=== PATIENT | female | born 1950 | race African-American/Black ===

== ENCOUNTER 2020-07-01 07:07 | Inpatient (IN) ==
[~2020-07-01 07:07] MED LIST: ceFAZolin 1,000 MG in SYRINGE 1 EACH IV ONE
[2020-07-01] MEDS ORDERED: NITROGLYCERIN DRIP 50 MG/250 ML BOTTLE IV ONE ×2 (07:39→12:39)
[2020-07-01] MEDS ORDERED: PHENYLEPHRINE DRIP 20 MG/250 ML PREMIX IV ONE ×2 (07:39→12:38)
[2020-07-01] MEDS ORDERED: HEPARIN 5,000 UNIT/1 ML VIAL ONE ×2 (07:44→10:27)
[2020-07-01] MEDS ORDERED: FAMOTIDINE 20 MG TABLET ONE (08:05)
[2020-07-01] MEDS ORDERED: FAMOTIDINE 20 MG TABLET PO ONE (08:07)
[2020-07-01] MEDS: LACTATED RINGERS 1,000 ML IV SCH ×3 (09:48→21:30)
[2020-07-01] MEDS ORDERED: LIDOCAINE 1% 20 ML VIAL ONE (11:58)
[2020-07-01] MEDS ORDERED: BUPIVACAINE MPF 0.25% 30 ML VIAL ONE (11:58)
[2020-07-01] MEDS ORDERED: MAGNESIUM CHLORIDE 64 MG TABLET PO PRN (12:24)
[2020-07-01] MEDS ORDERED: ERGOCALCIFEROL 50,000 UNIT CAPSULE PO SCH (12:30)
[2020-07-01] MEDS ORDERED: LIDOCAINE 2% 5 ML VIAL ONE (12:38)
[2020-07-01] MEDS ORDERED: propofoL 200 MG/20 ML VIAL IV ONE (12:38)
[2020-07-01] MEDS ORDERED: ETOMIDATE 40 MG/20 ML VIAL IV ONE (12:39)
[2020-07-01] MEDS ORDERED: DEXAMETHASONE 4 MG/1 ML VIAL ONE (12:39)
[2020-07-01] MEDS ORDERED: fentaNYL 100 MCG/2 ML VIAL ONE (12:39)
[2020-07-01] MEDS ORDERED: GLYCOPYRROLATE 0.4 MG/2 ML VIAL ONE (12:39)
[2020-07-01] MEDS ORDERED: HEPARIN 10,000 UNIT/10 ML VIAL ONE (12:39)
[2020-07-01] MEDS ORDERED: SEVOFLURANE 1 UNIT/15 MINUTE INH ONE (12:39)
[2020-07-01] MEDS ORDERED: ACETAMINOPHEN 1,000 MG/100 ML VIAL IV ONE (12:40)
[2020-07-01] MEDS ORDERED: NEOSTIGMINE 10 MG/10 ML VIAL ONE (12:40)
[2020-07-01] MEDS ORDERED: ROCURONIUM 100 MG/10 ML VIAL IV ONE (12:40)
[2020-07-01] MEDS ORDERED: LACTATED RINGERS 1,000 ML IV ONE (12:40)
[2020-07-01 13:56] LABS: Hematocrit 29.8 VOL% (35.7-47.0); Hemoglobin 9.3 GM/DL (12.0-16.0)
[2020-07-01 14:12] LABS: Calcium 8.6 MG/DL (8.5-10.1); Osmolality,Calculated 288.8 MOS/KG (273-304)
[2020-07-01] MEDS: HYDROmorphone 2 MG/1 ML VIAL IV PRN ×2 (15:16→21:29)
[2020-07-01] MEDS: ONDANSETRON 4 MG/2 ML VIAL IV PRN ×2 (15:45→19:59)
[2020-07-01] MEDS: carvediloL 25 MG TABLET PO SCH (20:02)
[2020-07-01] MEDS: DOCUSATE SODIUM 100 MG CAPSULE PO SCH (20:02)
[2020-07-01] MEDS: FERROUS SULFATE 325 MG TABLET PO SCH (20:03)
[2020-07-01] MEDS: INSULIN GLARGINE 100 UNIT/ML SUBCUT SCH (20:31)
[2020-07-02] MEDS: ONDANSETRON 4 MG/2 ML VIAL IV PRN ×2 (01:06→12:44)
[2020-07-02] MEDS: HYDROmorphone 2 MG/1 ML VIAL IV PRN ×2 (02:25→11:48)
[2020-07-02] MEDS: LACTATED RINGERS 1,000 ML IV SCH ×2 (04:56→10:03)
[2020-07-02 05:28] LABS: Hematocrit 28.7 VOL% (35.7-47.0); Hemoglobin 8.8 GM/DL (12.0-16.0)
[2020-07-02 05:47] LABS: Calcium 8.4 MG/DL (8.5-10.1); Osmolality,Calculated 290.8 MOS/KG (273-304)
[2020-07-02] MEDS: ENOXAPARIN 40 MG/0.4 ML SYRINGE SUBCUT SCH (08:22)
[2020-07-02] MEDS: VERAPAMIL SR 240 MG TABLET PO SCH (08:23)
[2020-07-02] MEDS: ASPIRIN EC 81 MG TABLET PO SCH (08:24)
[2020-07-02] MEDS: EZETIMIBE 10 MG TABLET PO SCH (08:25)
[2020-07-02] MEDS: carvediloL 25 MG TABLET PO SCH ×2 (08:25→21:08)
[2020-07-02] MEDS: PANTOPRAZOLE 40 MG TABLET PO SCH (08:25)
[2020-07-02] MEDS: ROSUVASTATIN 20 MG TABLET PO SCH (08:25)
[2020-07-02] MEDS: FERROUS SULFATE 325 MG TABLET PO SCH ×2 (08:25→21:06)
[2020-07-02] MEDS: LEVOTHYROXINE 50 MCG TABLET PO SCH (08:25)
[2020-07-02] MEDS: DOCUSATE SODIUM 100 MG CAPSULE PO SCH ×2 (08:25→21:06)
[2020-07-02] MEDS: LIRAGLUTIDE 1.2 MG SUBCUT SCH (10:02)
[2020-07-02] MEDS: INSULIN GLARGINE 100 UNIT/ML SUBCUT SCH (21:06)
[2020-07-03 06:22] LABS: Hematocrit 22.1 VOL% (35.7-47.0); Hemoglobin 6.9 GM/DL (12.0-16.0)
[2020-07-03 06:28] LABS: Calcium 8.5 MG/DL (8.5-10.1); Osmolality,Calculated 294.7 MOS/KG (273-304)
[2020-07-03] MEDS: LIRAGLUTIDE 1.2 MG SUBCUT SCH (08:24)
[2020-07-03] MEDS: LEVOTHYROXINE 50 MCG TABLET PO SCH (08:25)
[2020-07-03] MEDS: carvediloL 25 MG TABLET PO SCH (08:25)
[2020-07-03] MEDS: ROSUVASTATIN 20 MG TABLET PO SCH (08:25)
[2020-07-03] MEDS: ENOXAPARIN 40 MG/0.4 ML SYRINGE SUBCUT SCH (08:25)
[2020-07-03] MEDS: VERAPAMIL SR 240 MG TABLET PO SCH (08:25)
[2020-07-03] MEDS: EZETIMIBE 10 MG TABLET PO SCH (08:25)
[2020-07-03] MEDS: ASPIRIN EC 81 MG TABLET PO SCH (08:25)
[2020-07-03] MEDS: FERROUS SULFATE 325 MG TABLET PO SCH (08:25)
[2020-07-03] MEDS: PANTOPRAZOLE 40 MG TABLET PO SCH (08:25)
[2020-07-03] MEDS: DOCUSATE SODIUM 100 MG CAPSULE PO SCH ×2 (08:25→21:44)
[2020-07-03] MEDS ORDERED: MAGNESIUM SULF RIDER 4 GM in PREMIX 1 EACH IV PRN (10:28)
[2020-07-03] MEDS ORDERED: NALOXONE 0.4 MG/ML VIAL IV ONE (14:10)
[2020-07-03] MEDS ORDERED: SUCCINYLCHOLINE 200 MG/10 ML VIAL ONE (14:12)
[2020-07-03] MEDS ORDERED: ETOMIDATE 20 MG/10 ML VIAL IV ONE ×2 (14:12→14:14)
[2020-07-03] MEDS ORDERED: SUCCINYLCHOLINE 200 MG/10 ML VIAL IV ONE (14:14)
[2020-07-03] MEDS ORDERED: SODIUM CHLORIDE 0.9% 1,000 ML IV PRN ×2 (14:16→21:09)
[2020-07-03 14:22] LABS: Basophils % 0.2 % (0.0-0.8); Eosinophils # 0.1 10*3/uL (0.0-0.87); Eosinophils % 0.5 % (0.00-10.9); Hematocrit 19.1 VOL% (35.7-47.0); Immature Granulocytes % 0.9 %; Lymphocytes # 1.8 10*3/uL (1.4-4.0); Lymphocytes % 16.8 % (21.3-54.2); Mean Corpuscular HGB Conc 30.9 GM/DL (32-36); Mean Corpuscular Volume 96.5 FL (87-102); Mean Platelet Volume 10.6 FL (9.6-12.0); Monocytes % 10.3 % (1.7-12.7); NRBC # 0.03 10*3/uL; Neutrophils % 71.3 % (38.7-73.9); Platelet Count 97 T/CUMM (130-400); Red Blood Count 1.98 MC/CUMM (3.8-5.5); Red Cell Distribution Width 13.6 % (9.3-17.3)
[2020-07-03] MEDS ORDERED: LACTATED RINGERS 1,000 ML IV ONE (14:24)
[2020-07-03 14:26] LABS: Hemoglobin 5.9 GM/DL (12.0-16.0)
[2020-07-03] MEDS: NOREPINEPHRINE 8 MG in SODIUM CHLORIDE 0.9% 242 ML IV PRN ×2 (14:30→18:49)
[2020-07-03] MEDS ORDERED: ATROPINE 1 MG/10 ML SYRINGE ONE (14:54)
[2020-07-03] MEDS ORDERED: EPINEPHrine 1 MG/ML VIAL ONE (14:56)
[2020-07-03 15:01] LABS: Calcium 7.8 MG/DL (8.5-10.1); Osmolality,Calculated 294.2 MOS/KG (273-304)
[2020-07-03 15:19] LABS: ABG Base Excess -3.8 MMOL/L (-2.5-2.5); ABG HCO3 19.1 MMOL/L (20-26); ABG Oxygen Saturation 99.1 % (95-100); ABG PH 7.501 (7.35-7.45); ABG PO2 493.7 MM HG (80-95); ABG TCO2 19.9 MMOL/L (23-27)
[2020-07-03] MEDS ORDERED: LIDOCAINE 1% 20 ML VIAL ONE (16:06)
[2020-07-03] MEDS ORDERED: PHENYLEPHRINE 50 MG/5 ML VIAL ONE (17:00)
[2020-07-03 17:31] LABS: ABG Base Excess -4.4 MMOL/L (-2.5-2.5); ABG HCO3 20.8 MMOL/L (20-26); ABG Oxygen Saturation 99.9 % (95-100); ABG PCO2 28.9 MM HG (35-48); ABG PH 7.427 (7.35-7.45); ABG TCO2 17.5 MMOL/L (23-27)
[2020-07-03 17:36] LABS: Apearance,Urine CLEAR (Clear); Bilirubin,Urine Negative (Negative); Blood, Urine Negative (Negative); Glucose,Urine (UA) 50 mg/dL (Negative); Hyaline Casts,Urine 3 /LPF (0-3); Ketones,Urine Negative (Negative); Nitrite,Urine Negative (Negative); Protein,Urine Negative; RBC,Urine 1 /HPF (0-4); Urine Color Yellow (Yellow); Urine Specific Gravity 1.013 (1.001-1.035); Urine Urobilinogen < 2.0 EU/DL (0.2-1.0); WBC,Urine 1 /HPF (0-6)
[2020-07-03] MEDS ORDERED: PHENYLEPHRINE DRIP 40 MG/250 ML PREMIX IV PRN (18:50)
[2020-07-03] MEDS: LACTATED RINGERS 1,000 ML IV SCH (19:23)
[2020-07-03] MEDS: MAGNESIUM SULF RIDER 2 GM in PREMIX 1 EACH IV PRN (19:58)
[2020-07-03 20:57] LABS: Hematocrit 27.4 VOL% (35.7-47.0)
[2020-07-03 20:59] LABS: Hemoglobin 9.2 GM/DL (12.0-16.0)
[2020-07-03] MEDS ORDERED: MULTIVITAMIN (INTRINSIC) CAPSULE PO SCH (21:00)
[2020-07-03] MEDS ORDERED: RIVAROXABAN 2.5 MG TABLET PO SCH (21:00)
[2020-07-03 21:07] LABS: CKMB % 3.2 %
[2020-07-03 21:09] LABS: Troponin I 33.9 NG/ML (0.00-0.045)
[2020-07-04 04:52] LABS: ABG Base Excess 5.6 MMOL/L (-2.5-2.5); ABG HCO3 29.5 MMOL/L (20-26); ABG PCO2 21.9 MM HG (35-48); ABG TCO2 22.5 MMOL/L (23-27)
[2020-07-04 04:54] LABS: ABG PH 7.669 (7.35-7.45)
[2020-07-04 05:45] LABS: Basophils % 0.2 % (0.0-0.8); Hematocrit 33.4 VOL% (35.7-47.0); Immature Granulocytes % 1.2 %; Immature Granulocytes Absolute 0.15 #; Lymphocytes # 1.3 10*3/uL (1.4-4.0); Lymphocytes % 10.6 % (21.3-54.2); Mean Corpuscular HGB Conc 34.1 GM/DL (32-36); Mean Corpuscular Volume 87.2 FL (87-102); Mean Platelet Volume 9.6 FL (9.6-12.0); Monocytes % 4.6 % (1.7-12.7); NRBC # 0.13 10*3/uL; Neutrophils % 83.4 % (38.7-73.9); Red Cell Distribution Width 13.3 % (9.3-17.3); White Blood Count 12.7 T/CUMM (4-12)
[2020-07-04 05:48] LABS: Hemoglobin 11.4 GM/DL (12.0-16.0); Platelet Count 143 T/CUMM (130-400); Red Blood Count 3.83 MC/CUMM (3.8-5.5)
[2020-07-04 06:01] LABS: Calcium 9.3 MG/DL (8.5-10.1); Osmolality,Calculated 300.3 MOS/KG (273-304)
[2020-07-04 06:18] LABS: ABG Base Excess 4.2 MMOL/L (-2.5-2.5); ABG HCO3 24.7 MMOL/L (20-26); ABG Oxygen Saturation 98.6 % (95-100); ABG PCO2 24.9 MM HG (35-48); ABG PO2 251.6 MM HG (80-95); ABG TCO2 25.4 MMOL/L (23-27)
[2020-07-04 06:20] LABS: ABG PH 7.614 (7.35-7.45)
[2020-07-04] MEDS ORDERED: hydroCHLOROthiazide 25 MG TABLET PO SCH (09:00)
[2020-07-04] MEDS: LACTATED RINGERS 1,000 ML IV SCH ×3 (09:28→18:41)
[2020-07-04 10:31] LABS: CKMB % 0.7 %
[2020-07-04 10:34] LABS: Troponin I 21.8 NG/ML (0.00-0.045)
[2020-07-04] MEDS: AMPICILLIN/SULBACTAM 1,500 MG in SODIUM CHLORIDE 0.9% 100 ML IV SCH ×2 (11:50→17:34)
[2020-07-04] MEDS: HYDROmorphone 2 MG/1 ML VIAL IV PRN (12:06)
[2020-07-04] MEDS ORDERED: ATROPINE 1 MG/10 ML SYRINGE ONE (13:39)
[2020-07-04] MEDS ORDERED: NOREPINEPHRINE 4 MG/4 ML VIAL IV ONE (13:39)
[2020-07-04] MEDS ORDERED: EPINEPHrine 1 MG/10 ML SYRINGE ONE (13:39)
[2020-07-04] MEDS: amLODIPine 5 MG TABLET PO SCH (17:19)
[2020-07-04] MEDS: carvediloL 3.125 MG TABLET PO SCH (20:18)
[2020-07-05] MEDS: AMPICILLIN/SULBACTAM 1,500 MG in SODIUM CHLORIDE 0.9% 100 ML IV SCH ×3 (03:20→17:59)
[2020-07-05] MEDS: LACTATED RINGERS 1,000 ML IV SCH ×3 (03:41→14:03)
[2020-07-05 05:25] LABS: ABG Base Excess 7.9 MMOL/L (-2.5-2.5); ABG HCO3 31.7 MMOL/L (20-26); ABG Oxygen Saturation 99.7 % (95-100); ABG TCO2 25.5 MMOL/L (23-27)
[2020-07-05 05:29] LABS: Basophils % 0.2 % (0.0-0.8); Eosinophils # 0.1 10*3/uL (0.0-0.87); Eosinophils % 0.5 % (0.00-10.9); Hematocrit 34.8 VOL% (35.7-47.0); Hemoglobin 11.8 GM/DL (12.0-16.0); Immature Granulocytes Absolute 0.12 #; Lymphocytes # 0.9 10*3/uL (1.4-4.0); Lymphocytes % 7.7 % (21.3-54.2); Mean Corpuscular HGB Conc 33.9 GM/DL (32-36); Mean Corpuscular Volume 88.5 FL (87-102); Mean Platelet Volume 9.6 FL (9.6-12.0); Monocytes % 4.9 % (1.7-12.7); NRBC # 0.12 10*3/uL; Neutrophils % 85.7 % (38.7-73.9); Platelet Count 175 T/CUMM (130-400); Red Blood Count 3.93 MC/CUMM (3.8-5.5); Red Cell Distribution Width 13.2 % (9.3-17.3); White Blood Count 12.2 T/CUMM (4-12)
[2020-07-05 05:30] LABS: ABG PH 7.621 (7.35-7.45)
[2020-07-05 05:50] LABS: Calcium 9.2 MG/DL (8.5-10.1); Osmolality,Calculated 290.4 MOS/KG (273-304)
[2020-07-05] MEDS: carvediloL 3.125 MG TABLET PO SCH (08:31)
[2020-07-05] MEDS: amLODIPine 5 MG TABLET PO SCH (08:31)
[2020-07-05] MEDS ORDERED: POTASSIUM CHLORIDE RIDER 10 MEQ in PREMIX 1 EACH IV PRN (11:14)
[2020-07-05] MEDS ORDERED: GLUCAGON 1 MG VIAL IM PRN (11:16)
[2020-07-05] MEDS ORDERED: DEXTROSE 50% 25 GM/50 ML VIAL IV PRN (11:16)
[2020-07-05 11:55] LABS: ABG Base Excess 6.6 MMOL/L (-2.5-2.5); ABG HCO3 30.4 MMOL/L (20-26); ABG PCO2 37.6 MM HG (35-48); ABG TCO2 26.6 MMOL/L (23-27)
[2020-07-05] MEDS: POTASSIUM CHLORIDE RIDER 20 MEQ in PREMIX 1 EACH IV PRN ×2 (12:00→14:00)
[2020-07-05] MEDS: MAGNESIUM SULF RIDER 2 GM in PREMIX 1 EACH IV PRN ×2 (12:00→14:00)
[2020-07-05] MEDS: INSULIN REGULAR 100 UNIT/ML SUBCUT SCH ×2 (12:27→17:59)
[2020-07-05] MEDS: hydrALAZINE 20 MG/1 ML VIAL IV PRN (14:45)
[2020-07-05 14:58] LABS: ABG Base Excess 6.3 MMOL/L (-2.5-2.5); ABG HCO3 30.1 MMOL/L (20-26); ABG Oxygen Saturation 97.9 % (95-100); ABG PCO2 39.4 MM HG (35-48); ABG TCO2 26.5 MMOL/L (23-27)
[2020-07-05] MEDS: carvediloL 6.25 MG TABLET PO SCH (20:46)
[2020-07-06] MEDS: INSULIN REGULAR 100 UNIT/ML SUBCUT SCH ×5 (00:12→23:41)
[2020-07-06] MEDS: LACTATED RINGERS 1,000 ML IV SCH ×3 (00:13→21:26)
[2020-07-06] MEDS: AMPICILLIN/SULBACTAM 1,500 MG in SODIUM CHLORIDE 0.9% 100 ML IV SCH ×3 (02:18→18:05)
[2020-07-06 05:28] LABS: ABG HCO3 29.9 MMOL/L (20-26); ABG Oxygen Saturation 99.1 % (95-100); ABG PCO2 41.2 MM HG (35-48); ABG PH 7.473 (7.35-7.45); ABG TCO2 26.5 MMOL/L (23-27)
[2020-07-06 05:31] LABS: Basophils % 0.2 % (0.0-0.8); Eosinophils # 0.3 10*3/uL (0.0-0.87); Eosinophils % 2.3 % (0.00-10.9); Hematocrit 36.9 VOL% (35.7-47.0); Immature Granulocytes % 0.7 %; Lymphocytes # 1.1 10*3/uL (1.4-4.0); Lymphocytes % 7.4 % (21.3-54.2); Mean Corpuscular HGB Conc 32.5 GM/DL (32-36); Mean Corpuscular Volume 90.7 FL (87-102); Mean Platelet Volume 9.3 FL (9.6-12.0); Monocytes % 6.7 % (1.7-12.7); NRBC # 0.11 10*3/uL; Neutrophils % 82.7 % (38.7-73.9); Platelet Count 185 T/CUMM (130-400); Red Blood Count 4.07 MC/CUMM (3.8-5.5); Red Cell Distribution Width 13.3 % (9.3-17.3); White Blood Count 14.3 T/CUMM (4-12)
[2020-07-06] MEDS: hydrALAZINE 20 MG/1 ML VIAL IV PRN (05:36)
[2020-07-06 06:19] LABS: Albumin 2.2 G/DL (3.4-5.0); Bilirubin,Total 1.9 MG/DL (0.2-1.0); Calcium 9.2 MG/DL (8.5-10.1); Osmolality,Calculated 282.5 MOS/KG (273-304); Total Protein 6.1 G/DL (6.4-8.3)
[2020-07-06] MEDS ORDERED: MAGNESIUM SULF RIDER 2 GM in PREMIX 1 EACH IV ONE (07:43)
[2020-07-06] MEDS: amLODIPine 10 MG TABLET PO SCH (08:32)
[2020-07-06] MEDS: carvediloL 6.25 MG TABLET PO SCH ×2 (08:32→21:01)
[2020-07-06] MEDS: POTASSIUM CHLORIDE RIDER 20 MEQ in PREMIX 1 EACH IV PRN (08:35)
[2020-07-07] MEDS: AMPICILLIN/SULBACTAM 1,500 MG in SODIUM CHLORIDE 0.9% 100 ML IV SCH ×2 (02:49→12:55)
[2020-07-07] MEDS: INSULIN REGULAR 100 UNIT/ML SUBCUT SCH ×4 (06:21→23:53)
[2020-07-07] MEDS ORDERED: MAGNESIUM SULF RIDER 2 GM in PREMIX 1 EACH IV ONE (07:48)
[2020-07-07] MEDS: LACTATED RINGERS 1,000 ML IV SCH (07:59)
[2020-07-07 08:00] LABS: Basophils % 0.2 % (0.0-0.8); Eosinophils # 0.3 10*3/uL (0.0-0.87); Eosinophils % 2.8 % (0.00-10.9); Hemoglobin 11.7 GM/DL (12.0-16.0); Immature Granulocytes % 0.8 %; Lymphocytes # 1.1 10*3/uL (1.4-4.0); Lymphocytes % 9.2 % (21.3-54.2); Mean Corpuscular HGB Conc 31.6 GM/DL (32-36); Mean Platelet Volume 9.4 FL (9.6-12.0); Monocytes % 9.7 % (1.7-12.7); NRBC # 0.08 10*3/uL; Neutrophils % 77.3 % (38.7-73.9); Platelet Count 194 T/CUMM (130-400); Red Blood Count 3.98 MC/CUMM (3.8-5.5); Red Cell Distribution Width 13.5 % (9.3-17.3); White Blood Count 12.2 T/CUMM (4-12)
[2020-07-07] MEDS: carvediloL 6.25 MG TABLET PO SCH ×2 (08:00→21:44)
[2020-07-07] MEDS: amLODIPine 10 MG TABLET PO SCH (08:01)
[2020-07-07 08:21] LABS: Osmolality,Calculated 287.3 MOS/KG (273-304)
[2020-07-07] MEDS: ASPIRIN EC 81 MG TABLET PO SCH (12:55)
[2020-07-07] MEDS: MAGNESIUM SULF RIDER 2 GM in PREMIX 1 EACH IV PRN (12:56)
[2020-07-07] MEDS: AMOXICILLIN/CLAV 500 MG TABLET PO SCH (21:44)
[2020-07-08] MEDS: HYDROmorphone 2 MG/1 ML VIAL IV PRN ×2 (00:59→18:15)
[2020-07-08] MEDS: INSULIN REGULAR 100 UNIT/ML SUBCUT SCH ×3 (05:53→17:50)
[2020-07-08] MEDS: carvediloL 6.25 MG TABLET PO SCH ×2 (09:35→21:29)
[2020-07-08] MEDS: ASPIRIN EC 81 MG TABLET PO SCH (09:35)
[2020-07-08] MEDS: amLODIPine 10 MG TABLET PO SCH (09:35)
[2020-07-08] MEDS: AMOXICILLIN/CLAV 500 MG TABLET PO SCH ×2 (09:35→21:29)
[2020-07-08] MEDS: MAGNESIUM GLUCONATE 500 MG TABLET PO SCH ×2 (10:15→21:29)
[2020-07-08] MEDS ORDERED: MAGNESIUM HYDROXIDE SUSP 30 ML UDCUP PO PRN (10:38)
[2020-07-08] MEDS ORDERED: BISACODYL 10 MG SUPP RECTAL PRN (10:38)
[2020-07-09] MEDS: INSULIN REGULAR 100 UNIT/ML SUBCUT SCH ×4 (00:28→18:48)
[2020-07-09 06:13] LABS: Basophils # 0.1 10*3/uL (0.0-0.2); Basophils % 0.4 % (0.0-0.8); Eosinophils # 0.3 10*3/uL (0.0-0.87); Eosinophils % 2.5 % (0.00-10.9); Hematocrit 32.3 VOL% (35.7-47.0); Hemoglobin 10.5 GM/DL (12.0-16.0); Immature Granulocytes % 1.2 %; Immature Granulocytes Absolute 0.14 #; Lymphocytes # 1.5 10*3/uL (1.4-4.0); Lymphocytes % 12.2 % (21.3-54.2); Mean Corpuscular HGB Conc 32.5 GM/DL (32-36); Mean Platelet Volume 9.6 FL (9.6-12.0); Neutrophils % 69.7 % (38.7-73.9); Platelet Count 209 T/CUMM (130-400); Red Blood Count 3.51 MC/CUMM (3.8-5.5); Red Cell Distribution Width 13.1 % (9.3-17.3); White Blood Count 12.2 T/CUMM (4-12)
[2020-07-09 06:38] LABS: Calcium 8.3 MG/DL (8.5-10.1); Osmolality,Calculated 284.8 MOS/KG (273-304)
[2020-07-09] MEDS: amLODIPine 10 MG TABLET PO SCH (10:00)
[2020-07-09] MEDS: MAGNESIUM GLUCONATE 500 MG TABLET PO SCH ×2 (10:00→21:02)
[2020-07-09] MEDS: AMOXICILLIN/CLAV 500 MG TABLET PO SCH ×2 (10:01→21:02)
[2020-07-09] MEDS: carvediloL 6.25 MG TABLET PO SCH ×2 (10:01→21:08)
[2020-07-09] MEDS: ASPIRIN EC 81 MG TABLET PO SCH (10:01)
[2020-07-09] MEDS: ACETAMINOPHEN 325 MG TABLET PO PRN (21:08)
[2020-07-10] MEDS: INSULIN REGULAR 100 UNIT/ML SUBCUT SCH ×4 (00:53→17:25)
[2020-07-10] MEDS: ACETAMINOPHEN 325 MG TABLET PO PRN (09:08)
[2020-07-10] MEDS: ASPIRIN EC 81 MG TABLET PO SCH (09:10)
[2020-07-10] MEDS: carvediloL 6.25 MG TABLET PO SCH (09:10)
[2020-07-10] MEDS: MAGNESIUM GLUCONATE 500 MG TABLET PO SCH (09:10)
[2020-07-10] MEDS: AMOXICILLIN/CLAV 500 MG TABLET PO SCH (09:16)
[2020-07-10] MEDS: amLODIPine 10 MG TABLET PO SCH (09:17)
[2020-07-10 11:41] LABS: Apearance,Urine CLEAR (Clear); Bacteria,Urine Occasional /HPF (Few); Bilirubin,Urine Negative (Negative); Blood, Urine Small mg/dL (Negative); Glucose,Urine (UA) >=500 mg/dL (Negative); Ketones,Urine Negative (Negative); Mucus,Urine Occasional /LPF (Occasional); Nitrite,Urine Negative (Negative); Protein,Urine Negative; RBC,Urine 4 /HPF (0-4); Urine Color Yellow (Yellow); Urine Specific Gravity 1.011 (1.001-1.035); Urine Urobilinogen < 2.0 EU/DL (0.2-1.0); WBC,Urine 1 /HPF (0-6)
[2020-07-10 20:11] VITALS: BP 144/59
[2020-07-10] MEDS ORDERED: INSULIN GLARGINE 100 UNIT/ML SUBCUT SCH (21:00)
== END 2020-07-10 17:46 | disposition swing bed (61) | DRG 252 ==
LOC: N.LAB 07:07 → N.SDSINP 07:07 → N.4E 13:17 → N.ICU 07-03 14:00 → EDSTATUS 07-03 17:00 → N.ICU 07-07 01:22 → N.TELES 07-07 19:27 → UNDODEPREF 07-24 10:52
PROVIDERS: ADMIT Surgery; ATTEND Surgery

== ENCOUNTER 2020-08-05 15:01 | Inpatient (IN) ==
[2020-08-06] MEDS ORDERED: ACETAMINOPHEN 325 MG TABLET PO PRN (16:25)
[2020-08-06] MEDS ORDERED: MAGNESIUM CHLORIDE 64 MG TABLET PO PRN (16:25)
[2020-08-06 16:53] LABS: Basophils # 0.1 10*3/uL (0.0-0.2); Basophils % 0.5 % (0.0-0.8); Eosinophils # 0.5 10*3/uL (0.0-0.87); Eosinophils % 3.5 % (0.00-10.9); Hemoglobin 8.5 GM/DL (12.0-16.0); Immature Granulocytes % 0.4 %; Immature Granulocytes Absolute 0.06 #; Lymphocytes # 1.5 10*3/uL (1.4-4.0); Lymphocytes % 10.5 % (21.3-54.2); Mean Corpuscular HGB Conc 31.5 GM/DL (32-36); Mean Corpuscular Volume 91.5 FL (87-102); Mean Platelet Volume 8.5 FL (9.6-12.0); Monocytes % 11.5 % (1.7-12.7); Neutrophils % 73.6 % (38.7-73.9); Platelet Count 523 T/CUMM (130-400); Red Blood Count 2.95 MC/CUMM (3.8-5.5); Red Cell Distribution Width 13.8 % (9.3-17.3); White Blood Count 14.2 T/CUMM (4-12)
[2020-08-06 17:12] LABS: Albumin 2.4 G/DL (3.4-5.0); Bilirubin,Total 0.4 MG/DL (0.2-1.0); Calcium 9.2 MG/DL (8.5-10.1); Osmolality,Calculated 283.1 MOS/KG (273-304); Total Protein 7.7 G/DL (6.4-8.3)
[2020-08-06 17:13] LABS: INR 1.1; PT Patient Result 11.8 SECS (9.8-11.9)
[2020-08-06] MEDS: carvediloL 6.25 MG TABLET PO SCH (17:45)
[2020-08-06] MEDS: HYDROmorphone 2 MG/1 ML VIAL IV PRN (21:23)
[2020-08-06] MEDS: VANCOMYCIN INJ 1,000 MG in SODIUM CHLORIDE 0.9% 250 ML IV SCH (21:54)
[2020-08-06] MEDS: INSULIN GLARGINE 100 UNIT/ML SUBCUT SCH (21:55)
[2020-08-06] MEDS: FERROUS SULFATE 325 MG TABLET PO SCH (21:55)
[2020-08-06] MEDS: INSULIN REGULAR 100 UNIT/ML SUBCUT SCH (21:55)
[2020-08-07 03:38] LABS: Bacteria,Urine Occasional /HPF (Few); Bilirubin,Urine Negative (Negative); Blood, Urine Negative (Negative); Glucose,Urine (UA) 50 mg/dL (Negative); Ketones,Urine Negative (Negative); Nitrite,Urine Negative (Negative); Protein,Urine Negative; RBC,Urine 2 /HPF (0-4); Squamous Epithelial Cell,Urine Occasional /HPF (0-10); Urine Appearance CLEAR (Clear); Urine Color Yellow (Yellow); Urine Specific Gravity 1.012 (1.001-1.035); Urine Urobilinogen < 2.0 EU/DL (0.2-1.0); WBC,Urine 13 /HPF (0-6)
[2020-08-07] MEDS: HYDROmorphone 2 MG/1 ML VIAL IV PRN ×2 (04:08→12:30)
[2020-08-07] MEDS: LEVOTHYROXINE 50 MCG TABLET PO SCH (06:59)
[2020-08-07] MEDS: INSULIN REGULAR 100 UNIT/ML SUBCUT SCH ×4 (07:42→22:25)
[2020-08-07] MEDS ORDERED: GLUCAGON 1 MG VIAL IM PRN (09:02)
[2020-08-07] MEDS ORDERED: DEXTROSE 50% 25 GM/50 ML VIAL IV PRN (09:02)
[2020-08-07] MEDS ORDERED: LIDOCAINE 2% 5 ML VIAL ONE (09:08)
[2020-08-07] MEDS ORDERED: propofoL 200 MG/20 ML VIAL IV ONE (09:08)
[2020-08-07] MEDS ORDERED: METOCLOPRAMIDE 10 MG TABLET PO PRN (09:08)
[2020-08-07] MEDS ORDERED: SUCCINYLCHOLINE 200 MG/10 ML VIAL ONE (09:09)
[2020-08-07] MEDS ORDERED: SEVOFLURANE 1 UNIT/15 MINUTE INH ONE (09:09)
[2020-08-07] MEDS ORDERED: KETOROLAC 30 MG/1 ML VIAL ONE (09:09)
[2020-08-07] MEDS ORDERED: ALBUMIN 5% 12.5 GM/250 ML VIAL IV ONE (09:09)
[2020-08-07] MEDS ORDERED: ONDANSETRON 4 MG/2 ML VIAL ONE (09:09)
[2020-08-07] MEDS ORDERED: MEPERIDINE 25 MG/1 ML VIAL ONE (09:09)
[2020-08-07] MEDS ORDERED: ACETAMINOPHEN 1,000 MG/100 ML VIAL IV ONE (09:09)
[2020-08-07] MEDS ORDERED: ROCURONIUM 100 MG/10 ML VIAL IV ONE (09:09)
[2020-08-07] MEDS ORDERED: SODIUM CHLORIDE 0.9% 1,000 ML IV PRN (09:21)
[2020-08-07] MEDS: carvediloL 6.25 MG TABLET PO SCH ×3 (10:35→16:16)
[2020-08-07] MEDS: ASPIRIN EC 81 MG TABLET PO SCH ×2 (10:35→13:21)
[2020-08-07] MEDS: hydroCHLOROthiazide 25 MG TABLET PO SCH ×2 (10:36→13:22)
[2020-08-07] MEDS: LACTATED RINGERS 1,000 ML IV SCH ×2 (10:36→16:15)
[2020-08-07] MEDS: amLODIPine 10 MG TABLET PO SCH ×2 (10:36→13:22)
[2020-08-07] MEDS: FERROUS SULFATE 325 MG TABLET PO SCH ×3 (10:36→22:25)
[2020-08-07] MEDS: VERAPAMIL SR 240 MG TABLET PO SCH ×2 (10:36→13:21)
[2020-08-07] MEDS: PANTOPRAZOLE 40 MG TABLET PO SCH (13:22)
[2020-08-07] MEDS: NON-FORMULARY MEDICATION (Liraglutide [Victoza 3-Pak] 0.6 mg/0.1 mL (18 mg/3 mL) Pen Injec SUBCUT SCH (14:00)
[2020-08-07] MEDS: ONDANSETRON 4 MG/2 ML VIAL IV PRN (14:58)
[2020-08-07] MEDS: VANCOMYCIN INJ 1,000 MG in SODIUM CHLORIDE 0.9% 250 ML IV SCH (16:16)
[2020-08-07 17:24] LABS: Hematocrit 30.4 VOL% (35.7-47.0); Hemoglobin 9.8 GM/DL (12.0-16.0)
[2020-08-07] MEDS: KETOROLAC 10 MG TABLET PO PRN (17:42)
[2020-08-07] MEDS ORDERED: INSULIN GLARGINE 100 UNIT/ML SUBCUT SCH (21:00)
[2020-08-07] MEDS: ATORVASTATIN 80 MG TABLET PO SCH (22:24)
[2020-08-07] MEDS: INSULIN GLARGINE 100 UNIT/ML SUBCUT SCH (22:26)
[2020-08-08] MEDS: KETOROLAC 10 MG TABLET PO PRN (04:55)
[2020-08-08] MEDS: LACTATED RINGERS 1,000 ML IV SCH (05:30)
[2020-08-08 05:40] LABS: Basophils # 0.1 10*3/uL (0.0-0.2); Basophils % 0.5 % (0.0-0.8); Eosinophils # 0.4 10*3/uL (0.0-0.87); Eosinophils % 3.5 % (0.00-10.9); Hematocrit 26.2 VOL% (35.7-47.0); Hemoglobin 8.6 GM/DL (12.0-16.0); Immature Granulocytes % 0.4 %; Immature Granulocytes Absolute 0.05 #; Lymphocytes # 1.5 10*3/uL (1.4-4.0); Lymphocytes % 12.5 % (21.3-54.2); Mean Corpuscular HGB Conc 32.8 GM/DL (32-36); Mean Corpuscular Volume 86.5 FL (87-102); Mean Platelet Volume 8.6 FL (9.6-12.0); Monocytes % 11.6 % (1.7-12.7); Neutrophils % 71.5 % (38.7-73.9); Platelet Count 361 T/CUMM (130-400); Red Blood Count 3.03 MC/CUMM (3.8-5.5); Red Cell Distribution Width 14.7 % (9.3-17.3); White Blood Count 11.9 T/CUMM (4-12)
[2020-08-08 06:13] LABS: Calcium 8.3 MG/DL (8.5-10.1); Osmolality,Calculated 274.1 MOS/KG (273-304)
[2020-08-08] MEDS: LEVOTHYROXINE 50 MCG TABLET PO SCH (06:32)
[2020-08-08] MEDS ORDERED: ERGOCALCIFEROL 50,000 UNIT CAPSULE PO SCH (09:00)
[2020-08-08] MEDS: INSULIN REGULAR 100 UNIT/ML SUBCUT SCH ×4 (09:26→21:08)
[2020-08-08] MEDS: NON-FORMULARY MEDICATION (Liraglutide [Victoza 3-Pak] 0.6 mg/0.1 mL (18 mg/3 mL) Pen Injec SUBCUT SCH (09:26)
[2020-08-08] MEDS: hydroCHLOROthiazide 25 MG TABLET PO SCH (09:27)
[2020-08-08] MEDS: FERROUS SULFATE 325 MG TABLET PO SCH ×2 (09:28→20:19)
[2020-08-08] MEDS: ASPIRIN EC 81 MG TABLET PO SCH (09:28)
[2020-08-08] MEDS: carvediloL 6.25 MG TABLET PO SCH ×2 (09:28→16:45)
[2020-08-08] MEDS: ASCORBIC ACID 500 MG TABLET PO SCH (09:28)
[2020-08-08] MEDS: amLODIPine 10 MG TABLET PO SCH (09:29)
[2020-08-08] MEDS: VERAPAMIL SR 240 MG TABLET PO SCH (09:29)
[2020-08-08] MEDS: ENOXAPARIN 40 MG/0.4 ML SYRINGE SUBCUT SCH (09:29)
[2020-08-08] MEDS: PANTOPRAZOLE 40 MG TABLET PO SCH (09:29)
[2020-08-08] MEDS: EZETIMIBE 10 MG TABLET PO SCH (09:30)
[2020-08-08] MEDS: ATORVASTATIN 80 MG TABLET PO SCH (20:19)
[2020-08-08] MEDS: diphenhydrAMINE CAP 50 MG CAPSULE PO PRN (20:19)
[2020-08-08] MEDS: INSULIN GLARGINE 100 UNIT/ML SUBCUT SCH (20:23)
[2020-08-09] MEDS: LEVOTHYROXINE 50 MCG TABLET PO SCH (06:32)
[2020-08-09] MEDS: INSULIN REGULAR 100 UNIT/ML SUBCUT SCH ×4 (09:03→22:22)
[2020-08-09] MEDS: EZETIMIBE 10 MG TABLET PO SCH (09:04)
[2020-08-09] MEDS: FERROUS SULFATE 325 MG TABLET PO SCH ×2 (09:04→22:21)
[2020-08-09] MEDS: ENOXAPARIN 40 MG/0.4 ML SYRINGE SUBCUT SCH (09:04)
[2020-08-09] MEDS: VERAPAMIL SR 240 MG TABLET PO SCH (09:04)
[2020-08-09] MEDS: carvediloL 6.25 MG TABLET PO SCH ×2 (09:04→16:58)
[2020-08-09] MEDS: hydroCHLOROthiazide 25 MG TABLET PO SCH (09:05)
[2020-08-09] MEDS: ASPIRIN EC 81 MG TABLET PO SCH (09:05)
[2020-08-09] MEDS: amLODIPine 10 MG TABLET PO SCH (09:05)
[2020-08-09] MEDS: PANTOPRAZOLE 40 MG TABLET PO SCH (09:05)
[2020-08-09] MEDS: ASCORBIC ACID 500 MG TABLET PO SCH (09:05)
[2020-08-09] MEDS: NON-FORMULARY MEDICATION (Liraglutide [Victoza 3-Pak] 0.6 mg/0.1 mL (18 mg/3 mL) Pen Injec SUBCUT SCH (09:06)
[2020-08-09] MEDS: ONDANSETRON 4 MG/2 ML VIAL IV PRN (14:28)
[2020-08-09] MEDS: BISACODYL 5 MG TABLET PO PRN ×2 (14:28→18:36)
[2020-08-09] MEDS: INSULIN GLARGINE 100 UNIT/ML SUBCUT SCH (22:20)
[2020-08-09] MEDS: diphenhydrAMINE CAP 50 MG CAPSULE PO PRN (22:21)
[2020-08-09] MEDS: ATORVASTATIN 80 MG TABLET PO SCH (23:03)
[2020-08-10] MEDS: LEVOTHYROXINE 50 MCG TABLET PO SCH (05:48)
[2020-08-10] MEDS: INSULIN REGULAR 100 UNIT/ML SUBCUT SCH ×4 (08:40→22:29)
[2020-08-10] MEDS: FERROUS SULFATE 325 MG TABLET PO SCH ×2 (08:40→21:02)
[2020-08-10] MEDS: ENOXAPARIN 40 MG/0.4 ML SYRINGE SUBCUT SCH (08:40)
[2020-08-10] MEDS: ASCORBIC ACID 500 MG TABLET PO SCH (08:41)
[2020-08-10] MEDS: EZETIMIBE 10 MG TABLET PO SCH (08:41)
[2020-08-10] MEDS: ASPIRIN EC 81 MG TABLET PO SCH (08:41)
[2020-08-10] MEDS: carvediloL 6.25 MG TABLET PO SCH ×2 (08:41→16:06)
[2020-08-10] MEDS: NON-FORMULARY MEDICATION (Liraglutide [Victoza 3-Pak] 0.6 mg/0.1 mL (18 mg/3 mL) Pen Injec SUBCUT SCH (08:41)
[2020-08-10] MEDS: amLODIPine 10 MG TABLET PO SCH (08:41)
[2020-08-10] MEDS: VERAPAMIL SR 240 MG TABLET PO SCH (08:41)
[2020-08-10] MEDS: hydroCHLOROthiazide 25 MG TABLET PO SCH (08:41)
[2020-08-10] MEDS: PANTOPRAZOLE 40 MG TABLET PO SCH (08:41)
[2020-08-10] MEDS: ATORVASTATIN 80 MG TABLET PO SCH (21:02)
[2020-08-10] MEDS: INSULIN GLARGINE 100 UNIT/ML SUBCUT SCH (21:03)
[2020-08-11] MEDS: LEVOTHYROXINE 50 MCG TABLET PO SCH (05:50)
[2020-08-11] MEDS: ASCORBIC ACID 500 MG TABLET PO SCH (08:48)
[2020-08-11] MEDS: carvediloL 6.25 MG TABLET PO SCH ×2 (08:48→16:53)
[2020-08-11] MEDS: INSULIN REGULAR 100 UNIT/ML SUBCUT SCH ×4 (08:48→21:17)
[2020-08-11] MEDS: amLODIPine 10 MG TABLET PO SCH (08:48)
[2020-08-11] MEDS: FERROUS SULFATE 325 MG TABLET PO SCH ×2 (08:48→21:12)
[2020-08-11] MEDS: ASPIRIN EC 81 MG TABLET PO SCH (08:48)
[2020-08-11] MEDS: VERAPAMIL SR 240 MG TABLET PO SCH (08:48)
[2020-08-11] MEDS: EZETIMIBE 10 MG TABLET PO SCH (08:48)
[2020-08-11] MEDS: ENOXAPARIN 40 MG/0.4 ML SYRINGE SUBCUT SCH (08:48)
[2020-08-11] MEDS: PANTOPRAZOLE 40 MG TABLET PO SCH (08:48)
[2020-08-11] MEDS: NON-FORMULARY MEDICATION (Liraglutide [Victoza 3-Pak] 0.6 mg/0.1 mL (18 mg/3 mL) Pen Injec SUBCUT SCH (08:48)
[2020-08-11] MEDS: hydroCHLOROthiazide 25 MG TABLET PO SCH (08:48)
[2020-08-11] MEDS: BISACODYL 5 MG TABLET PO PRN (09:43)
[2020-08-11] MEDS: ATORVASTATIN 80 MG TABLET PO SCH (21:12)
[2020-08-11] MEDS: INSULIN GLARGINE 100 UNIT/ML SUBCUT SCH (21:18)
[2020-08-12] MEDS: ONDANSETRON 4 MG/2 ML VIAL IV PRN ×2 (02:16→06:46)
[2020-08-12] MEDS: LEVOTHYROXINE 50 MCG TABLET PO SCH (08:10)
[2020-08-12] MEDS: INSULIN REGULAR 100 UNIT/ML SUBCUT SCH ×4 (10:12→22:42)
[2020-08-12] MEDS: PANTOPRAZOLE 40 MG TABLET PO SCH (10:12)
[2020-08-12] MEDS: ASCORBIC ACID 500 MG TABLET PO SCH (10:12)
[2020-08-12] MEDS: EZETIMIBE 10 MG TABLET PO SCH (10:12)
[2020-08-12] MEDS: ASPIRIN EC 81 MG TABLET PO SCH (10:13)
[2020-08-12] MEDS: amLODIPine 10 MG TABLET PO SCH (10:13)
[2020-08-12] MEDS: VERAPAMIL SR 240 MG TABLET PO SCH (10:13)
[2020-08-12] MEDS: ENOXAPARIN 40 MG/0.4 ML SYRINGE SUBCUT SCH (10:13)
[2020-08-12] MEDS: hydroCHLOROthiazide 25 MG TABLET PO SCH (10:13)
[2020-08-12] MEDS: carvediloL 6.25 MG TABLET PO SCH ×2 (10:13→17:06)
[2020-08-12] MEDS: NON-FORMULARY MEDICATION (Liraglutide [Victoza 3-Pak] 0.6 mg/0.1 mL (18 mg/3 mL) Pen Injec SUBCUT SCH (10:13)
[2020-08-12] MEDS: FERROUS SULFATE 325 MG TABLET PO SCH (10:14)
[2020-08-12 10:31] LABS: Basophils # 0.1 10*3/uL (0.0-0.2); Basophils % 0.4 % (0.0-0.8); Eosinophils # 0.1 10*3/uL (0.0-0.87); Eosinophils % 0.5 % (0.00-10.9); Hematocrit 29.9 VOL% (35.7-47.0); Hemoglobin 9.9 GM/DL (12.0-16.0); Immature Granulocytes % 0.5 %; Lymphocytes % 4.9 % (21.3-54.2); Mean Corpuscular HGB Conc 33.1 GM/DL (32-36); Mean Corpuscular Volume 86.4 FL (87-102); Mean Platelet Volume 8.5 FL (9.6-12.0); Neutrophils % 86.7 % (38.7-73.9); Platelet Count 450 T/CUMM (130-400); Red Blood Count 3.46 MC/CUMM (3.8-5.5); Red Cell Distribution Width 14.2 % (9.3-17.3); White Blood Count 19.9 T/CUMM (4-12)
[2020-08-12 10:57] LABS: Albumin 2.2 G/DL (3.4-5.0); Calcium 8.9 MG/DL (8.5-10.1); Osmolality,Calculated 267.8 MOS/KG (273-304); Thyroid Stimulating Hormone 1.55 uIU/ml (0.358-3.74); Total Protein 7.1 G/DL (6.4-8.3)
[2020-08-12] MEDS ORDERED: METOCLOPRAMIDE 10 MG/2 ML VIAL IV ONE (11:00)
[2020-08-12 11:06] LABS: Band Neutrophils 3 % (0-10); Lymphocytes 6 % (20-55); Platelet Estimate Normal; Segmented Neutrophils 85 % (50-85); Total Cells Counted 100
[2020-08-12 11:07] LABS: Anisocytosis 2+
[2020-08-12] MEDS: METOCLOPRAMIDE 10 MG TABLET PO SCH ×2 (17:06→22:42)
[2020-08-12] MEDS: diphenhydrAMINE CAP 50 MG CAPSULE PO PRN (22:41)
[2020-08-12] MEDS: ATORVASTATIN 80 MG TABLET PO SCH (22:42)
[2020-08-12] MEDS: INSULIN GLARGINE 100 UNIT/ML SUBCUT SCH (22:43)
[2020-08-13] MEDS: METOCLOPRAMIDE 10 MG TABLET PO SCH ×3 (06:01→11:24)
[2020-08-13] MEDS: LEVOTHYROXINE 50 MCG TABLET PO SCH (06:01)
[2020-08-13] MEDS: INSULIN REGULAR 100 UNIT/ML SUBCUT SCH ×2 (07:50→11:59)
[2020-08-13] MEDS: hydroCHLOROthiazide 25 MG TABLET PO SCH (08:51)
[2020-08-13] MEDS: EZETIMIBE 10 MG TABLET PO SCH (08:51)
[2020-08-13] MEDS: carvediloL 6.25 MG TABLET PO SCH (08:51)
[2020-08-13] MEDS: VERAPAMIL SR 240 MG TABLET PO SCH (08:52)
[2020-08-13] MEDS: ENOXAPARIN 40 MG/0.4 ML SYRINGE SUBCUT SCH (08:52)
[2020-08-13] MEDS: ASPIRIN EC 81 MG TABLET PO SCH (08:52)
[2020-08-13] MEDS: PANTOPRAZOLE 40 MG TABLET PO SCH (08:52)
[2020-08-13] MEDS: amLODIPine 10 MG TABLET PO SCH (08:52)
[2020-08-13] MEDS: ASCORBIC ACID 500 MG TABLET PO SCH (08:52)
[2020-08-13] MEDS: NON-FORMULARY MEDICATION (Liraglutide [Victoza 3-Pak] 0.6 mg/0.1 mL (18 mg/3 mL) Pen Injec SUBCUT SCH (08:56)
[2020-08-13 11:25] VITALS: BP 126/47
== END 2020-08-13 16:15 | disposition swing bed (61) | DRG 240 ==
LOC: N.5E 08-06 16:07
PROVIDERS: ADMIT Surgery; ATTEND Surgery